=== PATIENT | female | born 1985 | race Caucasian/White ===

== ENCOUNTER 2016-08-04 09:17 | Day surgery (SDC) | payer OTHER ==
[~2016-08-04] VITALS: Ht 160 cm; Wt 110.0 kg
[2016-08-04] VITALS (11 sets, daily range): BP systolic 126–153; BP diastolic 60–99; PULSE 92–123; RESP 12–18; O2SAT 95–100
[~2016-08-04 09:17] MED LIST: ACET325T51 PO; CHOL5000 PO; CeFAZolin 2 Gm/50 mL D5W IV Premix IV ONE; HYDR-656 PO; IBUP-1827 PO; Lactated Ringer's 1,000 ML IV ONE; OXYC5CAP4 PO; PNV91TAB3 PO
[2016-08-04] MEDS ORDERED: Dexamethasone 4 mg/mL Inj ONE (09:18)
[2016-08-04] MEDS ORDERED: Propofol 10,000 mCg/mL 20 mL Inj ONE (09:18)
[2016-08-04] MEDS ORDERED: Ondansetron 2 mg/mL 2 mL Inj ONE (09:18)
[2016-08-04] MEDS ORDERED: fentaNYL-PF 50 mCg/mL 2 mL Inj ONE (09:18)
[2016-08-04] MEDS ORDERED: MetoCLOpramide 5 mg/mL 2 mL Inj ONE (09:18)
[2016-08-04] MEDS ORDERED: Dexamethasone 4 mg/mL Inj IVPUSH PRN (10:50)
[2016-08-04] MEDS ORDERED: Ondansetron 2 mg/mL 2 mL Inj IVPUSH PRN (10:50)
[2016-08-04] MEDS ORDERED: EPHEDrine Sulfate 50 mg/mL Inj IVPUSH PRN (10:50)
[2016-08-04] MEDS ORDERED: Lactated Ringer's 500 ML IV PRN (10:50)
[2016-08-04] MEDS ORDERED: MetoCLOpramide 5 mg/mL 2 mL Inj IVPUSH PRN (10:50)
[2016-08-04] MEDS ORDERED: Phenylephrine 10,000 mCg/mL Inj IVPUSH PRN (10:50)
[2016-08-04] MEDS ORDERED: Lactated Ringer's 1,000 ML IV SCH (10:50)
--- NOTE | 2016-08-04 10:50 | PCM.HPANE ---
Patient Data Surgeon Admitting Provider: Attending Provider:Mylene Cosby MD Primary Care Physician:Other,Physician Other Provider:Cole Sullivan Anesthesia Reason for Visit Left Kidney Stone Ht/WT & BMI Height (Feet): 5 Height (Inches): 3 Weight (Kilograms): 110.68 Body Mass Index 43.00 Allergies Coded Allergies: Sulfa (Sulfonamide Antibiotics) (Unverified Allergy, Unknown, 08/01/16) morphine (Unverified Allergy, Unknown, 08/01/16) Past Anesthesia History Anesthesia History: Denies:: Abnormal Airway, Anesthesia Reactions, Difficult Intubation, Fam Anesthesia Reaction Diabetes History Hx Diabetes?: No MRSA MRSA: No Medications Hypertension Medication: No Home Meds Incl Beta Arcelia: No Reported Medications Cholecalciferol (Vitamin D3) (Vitamin D3)5,000 Unit Capsule5,000 Unit PO DAILY 08/01/16 Acetaminophen 325 Mg [id number] Mg PO Q4H PRN For Pain Ref 0 08/01/16 Pnv95/Ferrous Fumarate/FA ( Caplet)28 Mg Iron-800 Mcg Tablet1 Each PO DAILY 08/01/16 oxyCODONE 5 Mg Capsule5 Mg PO Q4H PRN For Pain Ref 0 08/01/16 Ibuprofen 600 Mg [id number] Mg PO QID PRN For Pain Ref 0 08/01/16 hydrOXYzine Hcl (HydrOXYzine Hcl)25 Mg Vlwrkh79 Mg PO TID PRN For Itching Ref 0 08/01/16 History History of ENT Problems?: No HEENT History: Denies:: Abnormal Airway Cataracts Difficult Intubation Dysphagia Glaucoma Hearing Problem Sinus Problem TMJ Hx of Heart Problems?: No Cardiovascular History: Denies:: AICD Atrial Fibrillation Edema Heart Murmur Hypertension Irregular Heartbeat Pacemaker Peripheral Vascular Hx of Respiratory Problem?: No Respiratory History: Denies:: Asthma COPD Emphysema Oxygen Administration Pneumonia Tuberculosis Use of C-PAP Machine Use of Inhalers / NEBS Hx Neurologic Problems?: No Neurological History: Denies:: CVA Headaches Multiple Sclerosis Parkinson's Disease Seizures TIA Hx of GI Problems?: Yes Gastrointestinal History: Positive for:: Gall Bladder Disease (removed) Denies:: Gastroesphageal Reflux (during only) Heartburn Hepatitis Hiatal Hernia Hx of Problems?: Yes Genitourinary History: Positive for:: Kidney Stones (left kidney stone current admission problem) Female Hx: Denies:: Currently Problems with Breasts? Skin History: Denies:: History Skin Disorders? Pressure Ulcers Hx Musculoskeletal Problems?: Yes Musculoskeletal History: Positive for:: Musculoskeletal Trauma (hx of knee surgery) Osteoarthritis (knee) Denies:: Back Injury Fibromyalgia Joint Replacement Myasthenia Gravis Hx of Psycho/Social Problems?: No Psycho Social History: Denies:: Anxiety Hx Depression (recovering post depression, on no meds) Hx Surgeries?: Yes (c sections, oral surgery, tonsil, knee) Hx Any Other Health Problems?: Yes Other History: Denies:: Cancer Thyroid Disease History Blood Transfusions: Positive for:: Accept Blood Products? Denies:: Blood Transfusions Hx Diabetes: No Hx Alcohol Use: NoHx Substance Use: NoHave You Smoked inLast 12 mo: No Stop/Bang S-Snoring: Do You Snore Loudly: No T-Tired: feel tired, fatigued: Yes O-Obsered: Observed not breath: No P-Blood Pressure: treated: No B- Body Mass Index > 35 kg/m2: Yes A- Age over 50: No N- Neck Large Circumference: Yes G- Gender Male: No JOHN Total Score: 3 Risk Assessment Category Category 1A: Patient has history of documented sleep apnea, and HAS NOT received any narcotic, sedative or anesthesia administration during this stay. Category 1B: Patient has history of documented sleep apnea, and HAS received any narcotic , sedative or anesthesia administration during this stay Category 2: Patient has SUSPECTED Obstructive Sleep Apnea, and HAS received any narcotic , sedative or anesthesia administration during this stay. Category 3: Patient has SUSPECTED Obstructive Sleep Apnea and HAS NOT received narcotic, sedative or anesthesia administration during this stay. Category 4: Outpatient in Procedural Areas with known sleep apnea or who screen positive for High Risk via the STOP/BANG questionnaire. Exam Exam General Appearance: Alert, Oriented X3, Cooperative, No Acute Distress HEENT/AIRWAY: MP 2 Lungs: Clear to Auscultation Heart: Exam Unremarkable Plan Impression Patient chart reviewed, patient interviewed and anesthestic plan with risks, benefits, and alternatives discussed, and informed consent obtained. ASA Physical Status: ASA3 Severe Disease (morbid obesity) Anesthetic Plan: GA, SAB Bene/Risks/Altern/Consents: Yes HP Complete Prior to Induction: Yes Checo Ray MD Aug 04, 2016 07:16
[2016-08-04] MEDS ORDERED: HYDROcodone-APAP 5-325 mg Tablet PO PRN (11:40)
[2016-08-04] MEDS: HYDROmorphone 1 mg/mL Inj IVPUSH PRN ×2 (12:10→12:17)
[2016-08-04] MEDS: fentaNYL-PF 50 mCg/mL 2 mL Inj IVPUSH PRN ×2 (12:10→12:17)
--- NOTE | 2016-08-04 12:16 | DRSVH ---
PROCEDURE: X-RAY RETROGRADE UROGRAPHY INDICATIONS: C-ARM ASSISTED LEFT STENT PLACEMENT TECHNIQUE: 4 intra-operative images acquired by the Urology service. COMPARISON: None. FINDINGS: The left renal collecting system and ureter have been opacified demonstrating no hydroneph rosis or intraluminal filling defects seen. No extravasation of contrast media. IMPRESSION: Limited exam demonstrate grossly normal appearance of the left renal collecting system an d visualized portions of the left ureter. Dictated by: Joel Mosqueda [facility] Interpreted: Lillie Cisneros MD on 08/04/2016 at 12:14 Transcribed by: KAM on 08/04/2016 at 12:15 Approved by: Lillie Cisneros MD, PhD on 08/04/2016 at 16:30
--- NOTE | 2016-08-04 12:33 | PCM.ANEP1 ---
Post Anesthesia Phase 1 PACU Phase 1 Assessment Vital Signs Vital Signs Date Time Temp Pulse Resp B/P Pulse Ox O2 Delivery O2 Flow Rate FiO2 08/04/16 12:28 37.4 96 12 152/83 97 Room Air 08/04/16 12:25 102 15 139/75 97 Room Air 08/04/16 12:15 94 14 138/81 97 Room Air 08/04/16 12:10 37.5 103 12 140/79 97 Room Air 08/04/16 12:00 108 14 136/99 97 Room Air 08/04/16 11:55 105 15 141/88 97 Room Air 08/04/16 11:50 109 14 129/72 95 Room Air 08/04/16 11:45 37.2 123 15 126/60 95 Room Air 08/04/16 09:45 35.7 92 18 132/73 97 Room Air Anesthetic Administered: GA Level of Alertness: Awake, talking WILCOX's with Equal Strength: Yes Pain: No Nausea or Vomiting: No Oxygen Delivery: Room Air Lungs: Clear to Auscultation Dermatome Level: Full Sensation Checo Ray MD Aug 04, 2016 12:33
--- NOTE | 2016-08-04 12:33 | PCM.ANEP2 ---
Post Anesthesia Evaluation ASA/CMS Post Anesthesia VS in Patient's Normal Range?: Yes Resp Stable; Airway Patent?: Yes CV Function & Hydration Stable: Yes Mental Status Recovered?: Yes Pain control Satisfactory?: Yes N/V Control Satisfactory?: Yes Checo Ray MD Aug 04, 2016 12:33
[2016-08-04] MEDS ORDERED: oxyCODONE-Acetamin 5-325 mg Tablet PO ONE (13:15)
--- NOTE | 2016-08-04 21:48 | OP ---
[address] [address] OPERATIVE REPORT PATIENT: JOHN ROSENBAUM : 1985 MR#: [id number] ADMIT: 08/04/2016 JOB ID: [id number] DATE OF SURGERY: 08/05/2016 PREOPERATIVE DIAGNOSIS(ES): Left ureteral stone. POSTOPERATIVE DIAGNOSIS(ES): Left ureteral stone. PROCEDURE PERFORMED: 1. Cystoscopy. 2. Left retrograde pyelogram. 3. Left ureteroscopy. 4. Left ureteral stent placement. SURGEON: Mylene Cosby MD. ESTIMATED BLOOD LOSS: 5 mL. DRAINS: A 6 x 24 left double-J ureteral stent. COMPLICATIONS: None. CONDITION: Stable. INDICATION FOR PROCEDURE: The patient is a 30-year-old woman with a left ureteral stone. She now presents for management of for her stone. DESCRIPTION OF THE PROCEDURE: After informed consent was obtained, the patient was taken to the operating room. A time-out was performed identifying correct patient, surgical site, and procedure. General anesthesia was smoothly induced. She was given intravenous antibiotics. She was placed in the lithotomy position and all pressure points were identified and appropriately padded. Her genitals were then prepped and draped in a sterile fashion. A 22-Lithuanian rigid cystoscope was applied to the patient's urethra and advanced to the bladder. The bladder was drained. The left ureteral orifice was in orthotopic position. It was cannulated with 5-Lithuanian open-ended Pollack catheter. Retrograde pyelogram was performed. It appeared normal. Two Sensor tip wires were then advanced to the renal pelvis in sequence. A semi-rigid ureteroscope was then used to cannulate the left ureteral orifice and advanced into the distal ureter. Upon coming up to the proximal aspect of the distal ureter, it was not possible to proceed any further given the narrow caliber of the ureter. The ureteroscope was then brought down under direct vision. A 12/14 access sheath was attempted to be placed over one of the Sensor tip wires, though it could not be navigated any further than the distal ureter. The access sheath was then removed. The remaining Sensor tip wire was then backloaded into the cystoscope, and a 6 x 24 double-J ureteral stent was loaded over it and advanced to the renal pelvis as seen under fluoroscopy. The wire was then removed leaving a nice coil in the patient's bladder seen under direct vision. The bladder was then drained. The patient was reversed from general anesthesia and taken to the PACU in good and stable condition. MIGUEL
== END 2016-08-04 23:59 | disposition home or self-care (01) ==
LOC: SAS 09:17
PROVIDERS: ATTEND Urology
DX: N20.0 Calculus of kidney (principal)
CPT/HCPCS: 52332; 74420; C2617; J0690; J1100; J1170; J2175; J2405; J2765; J7120; Q9967

== ENCOUNTER 2016-08-11 11:29 | Day surgery (SDC) | payer OTHER ==
[2016-08-11] VITALS (12 sets, daily range): BP systolic 129–146; BP diastolic 66–81; PULSE 74–100; RESP 11–20; O2SAT 96–100
[~2016-08-11] VITALS: Ht 160 cm; Wt 108.0 kg
[~2016-08-11 11:29] MED LIST changes: -CeFAZolin 2 Gm/50 mL D5W IV Premix IV ONE
[2016-08-11] MEDS ORDERED: MetoCLOpramide 5 mg/mL 2 mL Inj ONE (11:30)
[2016-08-11] MEDS ORDERED: Dexamethasone 4 mg/mL Inj ONE (11:30)
[2016-08-11] MEDS ORDERED: Ondansetron 2 mg/mL 2 mL Inj ONE (11:30)
[2016-08-11] MEDS ORDERED: Propofol 10,000 mCg/mL 20 mL Inj ONE (11:30)
[2016-08-11] MEDS ORDERED: fentaNYL-PF 50 mCg/mL 2 mL Inj ONE (11:30)
[2016-08-11] MEDS ORDERED: CeFAZolin 2 Gm/50 mL D5W Duplex Bag IV ONE (11:47)
[2016-08-11] MEDS ORDERED: HYDR2TAB27 PO (12:24)
[2016-08-11] MEDS ORDERED: DOCU240C41 PO (12:24)
--- NOTE | 2016-08-11 13:07 | PCM.HPANE ---
Patient Data Surgeon Admitting Provider: Attending Provider:Mylene Cosby MD Primary Care Physician:Toni Other Provider:Cole Sullivan Anesthesia Reason for Visit Left Kidney Stone Ht/WT & BMI Height (Feet): 5 Height (Inches): 3 Weight (Kilograms): 110.68 Body Mass Index 43.00 Allergies Coded Allergies: Sulfa (Sulfonamide Antibiotics) (Unverified Allergy, Unknown, 08/01/16) morphine (Unverified Allergy, Unknown, 08/01/16) Past Anesthesia History Anesthesia History: Denies:: Abnormal Airway, Anesthesia Reactions, Difficult Intubation, Fam Anesthesia Reaction Diabetes History Hx Diabetes?: No MRSA MRSA: No Medications Reported Medications Docusate Calcium (Stool Softener)240 Mg [id number] Mg PO 08/11/16 Hydromorphone (Dilaudid)2 Mg Tablet2 Mg PO Q4H PRN Pain 08/11/16 Cholecalciferol (Vitamin D3) (Vitamin D3)5,000 Unit Capsule5,000 Unit PO DAILY 08/01/16 Acetaminophen 325 Mg Nlpsbe909 Mg PO Q4H PRN For Pain Ref 0 08/01/16 Pnv95/Ferrous Fumarate/FA ( Caplet)28 Mg Iron-800 Mcg Tablet1 Each PO DAILY 08/01/16 oxyCODONE 5 Mg Capsule5 Mg PO Q4H PRN For Pain Ref 0 08/01/16 Ibuprofen 600 Mg Ychqep642 Mg PO QID PRN For Pain Ref 0 08/01/16 hydrOXYzine Hcl (HydrOXYzine Hcl)25 Mg Wjepwk29 Mg PO TID PRN For Itching Ref 0 08/01/16 History History of ENT Problems?: No HEENT History: Denies:: Abnormal Airway Cataracts Difficult Intubation Dysphagia Hearing Problem Sinus Problem TMJ Hx of Heart Problems?: No Cardiovascular History: Denies:: AICD Atrial Fibrillation Edema Heart Murmur Hypertension Irregular Heartbeat Pacemaker Hx of Respiratory Problem?: No Respiratory History: Denies:: Asthma COPD Emphysema Oxygen Administration Pneumonia Tuberculosis Use of C-PAP Machine Use of Inhalers / NEBS Hx Neurologic Problems?: No Neurological History: Denies:: CVA Headaches Multiple Sclerosis Parkinson's Disease Seizures Hx of GI Problems?: Yes Gastrointestinal History: Denies:: Gastroesphageal Reflux (during only) Heartburn Hepatitis Hiatal Hernia Hx of Problems?: Yes Genitourinary History: Positive for:: Kidney Stones (left kidney stone current admission problem) Denies:: Urinary Tract Infection Other Pertinent History: prior surgery here 08/04 Female Hx: Denies:: Currently Problems with Breasts? Skin History: Denies:: History Skin Disorders? Pressure Ulcers Hx Musculoskeletal Problems?: Yes Musculoskeletal History: Positive for:: Musculoskeletal Trauma (hx of knee surgery) Denies:: Back Injury Joint Replacement Hx of Psycho/Social Problems?: No Psycho Social History: Denies:: Anxiety Hx Depression (recovering post depression, on no meds) Hx Surgeries?: Yes (c sections, oral surgery, tonsil, knee, cyst- stent) Hx Any Other Health Problems?: Yes Other History: Denies:: Cancer Thyroid Disease History Blood Transfusions: Positive for:: Accept Blood Products? Denies:: Blood Transfusions Hx Diabetes: No Hx Alcohol Use: NoHx Substance Use: No Smoking Status: Never Smoker Have You Smoked inLast 12 mo: No Stop/Bang S-Snoring: Do You Snore Loudly: No T-Tired: feel tired, fatigued: Yes O-Obsered: Observed not breath: No P-Blood Pressure: treated: No B- Body Mass Index > 35 kg/m2: Yes A- Age over 50: No N- Neck Large Circumference: Yes G- Gender Male: No JOHN Total Score: 3 Risk Assessment Category Category 1A: Patient has history of documented sleep apnea, and HAS NOT received any narcotic, sedative or anesthesia administration during this stay. Category 1B: Patient has history of documented sleep apnea, and HAS received any narcotic , sedative or anesthesia administration during this stay Category 2: Patient has SUSPECTED Obstructive Sleep Apnea, and HAS received any narcotic , sedative or anesthesia administration during this stay. Category 3: Patient has SUSPECTED Obstructive Sleep Apnea and HAS NOT received narcotic, sedative or anesthesia administration during this stay. Category 4: Outpatient in Procedural Areas with known sleep apnea or who screen positive for High Risk via the STOP/BANG questionnaire. Exam Exam General Appearance: Alert, Oriented X3, Cooperative, No Acute Distress HEENT/AIRWAY: MP 2, Neck Movement (FROM), Mouth Opening (3 FBMO) Lungs: Clear to Auscultation, Normal Air Movement Heart: Exam Unremarkable, Regular Rate/Rhythm, No Murmurs/Rubs/Gallops Plan Impression Patient chart reviewed, patient interviewed and anesthestic plan with risks, benefits, and alternatives discussed, and informed consent obtained. NPO Status: 11pm ASA Physical Status: ASA3 Severe Disease (BMI 42) Anesthetic Plan: GA HP Complete Prior to Induction: Yes Herber Li MD Aug 11, 2016 11:29
[2016-08-11] MEDS: CeFAZolin 2 Gm/50 mL D5W IV Premix IV ONE ×2 (13:29→14:22)
[2016-08-11] MEDS ORDERED: Iopamidol-300 50 mL Inj IV ONE (14:37)
[2016-08-11] MEDS ORDERED: Lactated Ringer's 500 ML IV PRN (14:46)
[2016-08-11] MEDS ORDERED: Lactated Ringer's 1,000 ML IV SCH (14:46)
[2016-08-11] MEDS ORDERED: hydrALAZINE 20 mg/mL Inj IVPUSH PRN (14:50)
[2016-08-11] MEDS ORDERED: HYDROmorphone 1 mg/mL Inj IVPUSH PRN (14:50)
[2016-08-11] MEDS ORDERED: MetoCLOpramide 5 mg/mL 2 mL Inj IVPUSH PRN (14:50)
[2016-08-11] MEDS ORDERED: Ondansetron 2 mg/mL 2 mL Inj IVPUSH PRN (14:50)
[2016-08-11] MEDS ORDERED: Labetalol 5 mg/mL 4 mL Inj IV PRN (14:50)
[2016-08-11] MEDS ORDERED: Phenylephrine 10,000 mCg/mL Inj IVPUSH PRN (14:50)
[2016-08-11] MEDS ORDERED: Atropine 0.4 mg/mL Inj IVPUSH PRN (14:50)
[2016-08-11] MEDS ORDERED: fentaNYL-PF 50 mCg/mL 2 mL Inj IVPUSH PRN (14:50)
[2016-08-11] MEDS ORDERED: EPHEDrine Sulfate 50 mg/mL Inj IVPUSH PRN (14:50)
[2016-08-11] MEDS ORDERED: oxyCODONE-Acetamin 5-325 mg Tablet PO PRN (15:15)
--- NOTE | 2016-08-11 16:04 | PCM.ANEP2 ---
Post Anesthesia Evaluation ASA/CMS Post Anesthesia VS in Patient's Normal Range?: Yes Resp Stable; Airway Patent?: Yes CV Function & Hydration Stable: Yes Mental Status Recovered?: Yes Pain control Satisfactory?: Yes N/V Control Satisfactory?: Yes Herber Li MD Aug 11, 2016 16:04
--- NOTE | 2016-08-11 16:04 | PCM.ANEP1 ---
Post Anesthesia Phase 1 PACU Phase 1 Assessment Vital Signs Vital Signs Date Time Temp Pulse Resp B/P Pulse Ox O2 Delivery O2 Flow Rate FiO2 08/11/16 16:00 85 140/78 98 Room Air 08/11/16 15:50 37.2 90 15 137/81 98 Room Air 08/11/16 15:40 96 12 142/79 99 Room Air 08/11/16 15:35 100 20 132/78 100 Room Air 08/11/16 15:30 95 19 146/72 100 Simple Mask 8 08/11/16 15:25 92 18 141/66 100 Simple Mask 8 08/11/16 15:21 36.4 91 14 141/77 100 Simple Mask 8 08/11/16 12:13 36.6 74 18 129/81 96 Room Air 08/11/16 11:58 36.6 74 18 129/81 96 Room Air Anesthetic Administered: GA Level of Alertness: Awake, talking WILCOX's with Equal Strength: Yes Pain: No Nausea or Vomiting: No Oxygen Delivery: Simple Mask Lungs: Clear to Auscultation, Normal Air Movement Dermatome Level: Full Sensation Herber Li MD Aug 11, 2016 16:03
--- NOTE | 2016-08-11 16:25 | DRSVH ---
PROCEDURE: X-RAY RETROGRADE UROGRAPHY INDICATIONS: C-ARM ASSISTED LEFT STENT PLACEMENT TECHNIQUE: 3 intra-operative images acquired by the Urology service. COMPARISON: [facility], CR, XR RETROGRADE UROGRAPHY, 08/04/2016, 12:24. FINDINGS: Limited exam demonstrating partial opacification of the left renal collecting system and p roximal ureter which is normal caliber. Ureteral stent was placed. IMPRESSION: Placement of ureteral stent. Dictated by: Joel Mosqueda [facility] Interpreted: Lillie Cisneros MD on 08/11/2016 at 16:23 Transcribed by: KAM on 08/11/2016 at 16:24 Approved by: Lillie Cisneros MD, PhD on 08/11/2016 at 17:10
--- NOTE | 2016-08-12 00:45 | OP ---
[address] [address] OPERATIVE REPORT PATIENT: JOHN ROSENBUAM : 1985 MR#: [id number] ADMIT: 08/11/2016 JOB ID: [id number] DATE OF SURGERY: 08/11/2016 PREOPERATIVE DIAGNOSIS(ES): Left ureteral stone. POSTOPERATIVE DIAGNOSIS(ES): Left kidney stone. PROCEDURE PERFORMED: 1. Cystoscopy and left retrograde pyelogram. 2. Left ureteral stent removal. 3. Left ureteroscopy laser lithotripsy and stone basketing. 4. Left ureteral stent placement. SURGEON: Mylene Cosby MD [employer]: None. FINDINGS: Lower pole 5 mm kidney stone. ANESTHESIA: General. ESTIMATED BLOOD LOSS: Less than 2 mL. DRAINS: 6 x 24 double-J ureteral stent. SPECIMENS: None. COMPLICATIONS: None. INDICATION FOR PROCEDURE: The patient is a 30-year-old woman with a history of a left ureteral stone. She has undergone previous left stent placement and ureteroscopy of the distal ureter. She now presents for definitive management of her stone. DESCRIPTION OF PROCEDURE: After informed consent was obtained, the patient was taken to the operating room. A time-out was performed, identifying correct patient, surgical site, and procedure. General anesthesia was smoothly induced. She was given intravenous antibiotics prior to start of the procedure. She was placed in the lithotomy position and all pressure points were identified and appropriately padded. Her genitals were then prepped and draped in usual sterile fashion. A 22-Kyrgyz rigid cystoscope was applied to patient's urethra and advanced to the bladder. The bladder was drained. The left ureteral orifice was seen with bullous edema consistent with indwelling stent. The stent was then manipulated down to the urethral meatus with stent graspers. A Sensor Tip wire was then loaded into the stent and navigated to the renal pelvis as seen under fluoroscopy. The stent was then backloaded off the wire and examined tip to tail, and ensured as removed in its entirety. A second Sensor Tip wire was then navigated to the renal pelvis as seen under fluoroscopy. The semi-rigid ureteroscope was then used to navigate the distal and mid ureter. There was no stone there. The ureteroscope was then removed under direct vision. The Sensor Tip wire was then backloaded into a 12/14 access sheath, 28 cm long, which was navigated to the mid ureter. A flexible ureteroscope was then used to perform direct ureteroscopy on the proximal ureter and a retrograde pyelogram was performed. Every calyx was examined. There was a 5 mm stone consistent with ureteral stone that likely had been pushed back into the kidney when she had her initial procedure. A 273 micron laser FiberWire was used to break the stone into small pieces. It was attempted to basket the stone with Zero Tip Nitinol basket, but the stone fragments were just too small. The ureteroscope was then brought down to the level of the access sheath, and they were both brought down in tandem. The ureter appeared entirely normal. The remaining Sensor Tip wire was then loaded into the cystoscope and a 6 x 24 ureteral stent was loaded over the wire and navigated to the renal pelvis as seen on fluoroscopy. The wire was then removed, leaving a nice coil in patient's bladder. The patient's bladder was drained. The patient was then reversed from general anesthesia and taken to PACU in good and stable condition. MIGUEL
== END 2016-08-11 23:59 | disposition home or self-care (01) ==
LOC: SAS 11:29
PROVIDERS: ATTEND Urology
DX: N20.0 Calculus of kidney (principal)
CPT/HCPCS: 52356; 74420; C2617; J0690; J1100; J1170; J2175; J2405; J2765; J7120; Q9967